=== PATIENT | male | born 1995 | race Caucasian/White ===

== ENCOUNTER 2016-12-28 16:43 | Emergency (ER) | payer BC ==
[~2016-12-28] VITALS: Ht 180.3 cm; Wt 161.4 kg
[2016-12-28 18:40] LABS: HEMATOCRIT 41.5 % (38.0-50.0); MCH 28.8 PG (29.0-34.0); MCHC 34.7 G/DL (30.0-36.0); MEAN PLAT.VOLUME 10.1 uM^3 (9.0-12.4); PLATELET COUNT 321 K/uL (156-360); RBC DIS.WIDTH-CV 12.8 % (11.8-14.6); RBC DIS.WIDTH-SD 38.5 % (39-53); WHITE BLOOD COUNT 11.3 K/uL (4.1-10.2)
[2016-12-28 18:57] LABS: CHLORIDE 105 mEq/L (99-109); POTASSIUM 3.6 mEq/L (3.7-5.4); SODIUM 137 mEq/L (136-147)
[2016-12-28 18:59] LABS: GLUCOSE 142 mg/dL (70-99)
[2016-12-28 19:00] LABS: ANION GAP 12 MEQ/L (2-14)
[2016-12-28 19:01] LABS: TOTAL BILIRUBIN 0.7 mg/dL (0.0-1.0)
[2016-12-28 19:02] LABS: ALKALINE PHOSPHATASE 84 IU/L (3-129); GFR ESTIMATE (CALCULATED) > 59 mL/min/
[2016-12-28 19:04] LABS: UREA NITROGEN (BUN) 10 mg/dL (9-23)
[2016-12-28 19:14] LABS: TROP-I INTERPRETATION NEGATIVE; TROPONIN-I < 0.01 ng/mL (0.0-0.30)
[2016-12-28] MEDS ORDERED: FLEXERIL10 MG PO (19:40)
[2016-12-28 19:55] VITALS: BP 117/89
== END 2016-12-28 19:56 | disposition home or self-care (01) ==
LOC: EME 16:43
PROVIDERS: Nurse Practitioner Family
DX: R07.89 Other chest pain (principal); M25.512 Pain in left shoulder; F41.9 Anxiety disorder, unspecified; E66.9 Obesity, unspecified; Z88.5 Allergy status to narcotic agent
CPT/HCPCS: 80053; 84484; 85027; 93005; 99281; 99284

== ENCOUNTER 2017-01-04 15:00 | Emergency (ER) | payer BC ==
[~2017-01-04] VITALS: Ht 180.3 cm; Wt 161.9 kg
[~2017-01-04 15:00] MED LIST: FLEXERIL10 MG PO
[2017-01-04 16:23] LABS: BASOPHIL COUNT 0.1 K/uL (0-0.1); EOSINOPHIL (%) 1.1 % (0-5); EOSINOPHIL COUNT 0.1 K/uL (0-0.3); HEMATOCRIT 42.5 % (38.0-50.0); IMMATURE GRANULOCYTE (%) 0.3 % (0.0-0.7); INSTRUMENT ABS NEUTROPHIL CT 7.7 K/uL; LYMPHOCYTE COUNT 3.1 K/uL (1.0-2.8); MCH 28.8 PG (29.0-34.0); MCHC 34.6 G/DL (30.0-36.0); MCV 83.3 FL (86-99); MONOCYTE (%) 5.3 % (3-12); MONOCYTE COUNT 0.6 K/uL (0-0.8); NEUTROPHIL (%) 66.3 % (45-76); NEUTROPHIL COUNT 7.7 K/uL (1.8-6.4); PLATELET COUNT 307 K/uL (156-360); RBC DIS.WIDTH-CV 12.6 % (11.8-14.6); RBC DIS.WIDTH-SD 38.3 % (39-53); WHITE BLOOD COUNT 11.6 K/uL (4.1-10.2)
[2017-01-04 16:37] LABS: CHLORIDE 105 mEq/L (99-109); SODIUM 138 mEq/L (136-147)
[2017-01-04 16:38] LABS: GLUCOSE 153 mg/dL (70-99)
[2017-01-04 16:40] LABS: ANION GAP 9 MEQ/L (2-14)
[2017-01-04 16:41] LABS: SERUM ETHYL ALCOHOL < 10 mg/dL
[2017-01-04 16:42] LABS: GFR ESTIMATE (CALCULATED) > 59 mL/min/
[2017-01-04 16:43] LABS: UREA NITROGEN (BUN) 11 mg/dL (9-23)
[2017-01-04 17:34] VITALS: BP 130/85
== END 2017-01-04 17:34 | disposition home or self-care (01) ==
LOC: EME 15:00
PROVIDERS: Emergency Medicine
DX: F43.20 Adjustment disorder, unspecified (principal); F32.9 Major depressive disorder, single episode, unspecified; F41.9 Anxiety disorder, unspecified; Z63.4 Disappearance and death of family member
CPT/HCPCS: 80048; 85025; 90837; 99281; 99284; G0480